=== PATIENT | male | born 1945 | race Caucasian/White ===

== ENCOUNTER 2016-08-15 13:48 | Inpatient (IN) | payer MEDICARE, MEDICAID ==
[2016-08-15 14:32] LABS: AUTOMATED BASOPHIL 0.6 % (0-2); AUTOMATED EOSINOPHIL 0.4 % (0-5); AUTOMATED LYMPH 18.6 % (17-44); AUTOMATED MONOCYTE 7.4 % (3-10); MPV 7.6 fL (7.4-10.4)
--- NOTE | 2016-08-15 14:36 | DIRPT ---
CLINICAL DATA: Headache, nausea, generalized weakness, blurred vision EXAM: PORTABLE CHEST 1 VIEW COMPARISON: 01/14/2015 FINDINGS: Cardiomediastinal silhouette is stable. Dual lead cardiac pacemaker is unchanged in position. Old left lower rib fractures are again noted no acute infiltrate or pulmonary edema. Mild left basilar atelectasis or scarring. IMPRESSION: No infiltrate or pulmonary edema. Old left lower rib fractures. Dual lead cardiac pacemaker is unchanged in position. Electronically Signed By: Rigo Miranda M.D. On: 08/15/2016 14:33
[2016-08-15 14:45] LABS: PARTIAL THROMB. TIME 26.1 SEC (22-35); PT-INR 1.1
[2016-08-15 14:47] LABS: BLOOD UREA NITROGEN 18 MG/DL (9-20); CALCIUM 9.5 MG/DL (8.4-10.2); CALCULATED OSMOLALITY 275 MOs/Kg (270-290); CHLORIDE 101 mEq/L (98-107); GLUCOSE 172 MG/DL (70-99); SODIUM LEVEL 140 mEq/L (137-146); TOTAL PROTEIN 7.6 G/DL (6.3-8.2)
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
--- NOTE | 2016-08-15 15:58 | DIRPT ---
CLINICAL DATA: Right-sided weakness. Headaches since last night. EXAM: CT HEAD WITHOUT CONTRAST TECHNIQUE: Contiguous axial images were obtained from the base of the skull through the vertex without intravenous contrast. COMPARISON: 01/17/2016 FINDINGS: Small lacunar infarct is identified within the right caudate nucleus. There is no intra or extra-axial fluid collection or mass lesion. The basilar cisterns and ventricles have a normal appearance. There is no CT evidence for acute infarction or hemorrhage. Bone windows are unremarkable. IMPRESSION: 1. 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 2. No evidence for acute intracranial abnormality. Electronically Signed By: Maya Coronado M.D. On: 08/15/2016 15:55
[2016-08-15 16:18] LABS: LEUKOCYTES/URINE NEG (NEGATIVE); NITRITE/URINE NEG (NEGATIVE); RBC/URINE 0-2 (0-2); URINE OCCULT BLOOD NEG (NEG/TRACE); WBC/URINE 0-2 (0-2)
[2016-08-15] MEDS ORDERED: OXYCODONE HCL 5 MG TABLET PO ONE (16:49)
[2016-08-15] MEDS: ASPIRIN 300 MG SUPP PR ONE ×2 (17:33→17:35)
[2016-08-15] MEDS ORDERED: ACETAMINOPHEN 325 MG/TAB TABLET PO PRN (18:12)
[2016-08-15] MEDS ORDERED: ONDANSETRON HCL 4 MG/2 ML VIAL IV PRN (18:12)
[2016-08-15] MEDS ORDERED: ALBUTEROL 0.083% 3 ML NEB NEB PRN (18:13)
[2016-08-15] MEDS ORDERED: DEXTROSE 25 GM/50 ML PFS IV PRN (18:13)
[2016-08-15] MEDS ORDERED: GLUCOSE (ORAL GEL) 15 GM TUBE PO PRN (18:13)
[2016-08-15] MEDS ORDERED: GLUCAGON 1 MG VIAL SQ PRN (18:13)
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
[2016-08-15] MEDS ORDERED: GLARGINE INSULIN (LANTUS) 100 UNITS/ML PEN SQ SCH (19:00)
[2016-08-15] MEDS ORDERED: BUDESONIDE 0.5 MG NEB NEB SCH (20:00)
[2016-08-15] MEDS: ALBUTEROL 0.083% 3 ML NEB NEB SCH (20:34)
[2016-08-15] MEDS: BUDESONIDE 0.5 MG NEB NEB SCH (20:36)
[2016-08-15] MEDS: REGULAR INSULIN 100 UNITS/ML - 3 ML VIAL SQ SCH (20:51)
[2016-08-15] MEDS: GLARGINE INSULIN (LANTUS) 100 UNITS/ML PEN SQ SCH (21:07)
[2016-08-15] MEDS: HYDROCODONE 5 MG/ACETAMIN 325 MG TAB PO PRN (21:13)
[2016-08-16] MEDS: OXYCODONE HCL 5 MG TABLET PO PRN ×2 (00:12→09:08)
[2016-08-16] MEDS: ALBUTEROL 0.083% 3 ML NEB NEB SCH ×4 (01:57→20:03)
[2016-08-16] MEDS: HYDROCODONE 5 MG/ACETAMIN 325 MG TAB PO PRN (06:06)
[2016-08-16] MEDS: GLARGINE INSULIN (LANTUS) 100 UNITS/ML PEN SQ SCH ×2 (06:08→21:18)
[2016-08-16] MEDS: REGULAR INSULIN 100 UNITS/ML - 3 ML VIAL SQ SCH ×4 (06:10→21:18)
[2016-08-16 06:15] LABS: MPV 7.8 fL (7.4-10.4)
[2016-08-16 06:28] LABS: BLOOD UREA NITROGEN 20 MG/DL (9-20); CALCIUM 8.9 MG/DL (8.4-10.2); CALCULATED OSMOLALITY 273 MOs/Kg (270-290); CHLORIDE 98 mEq/L (98-107); GLUCOSE 134 MG/DL (70-99); SODIUM LEVEL 139 mEq/L (137-146)
[2016-08-16] MEDS: BUDESONIDE 0.5 MG NEB NEB SCH ×2 (08:23→20:04)
[2016-08-16] MEDS ORDERED: ACETAMINOPHEN 325 MG SUPP PR ONE (09:56)
[2016-08-16] MEDS ORDERED: Pharmacy Review for Metformin - IV Contrast Given SCH ×2 (10:00→20:00)
[2016-08-16] MEDS ORDERED: ASPIRIN 300 MG SUPP PR ONE (10:15)
[2016-08-16] MEDS ORDERED: MORPHINE 2 MG/ML INJECTION ONE (10:28)
--- NOTE | 2016-08-16 11:06 | DIRPT ---
CLINICAL DATA: Right-sided weakness. Headache 2 days. EXAM: CT HEAD WITHOUT AND WITH CONTRAST TECHNIQUE: Contiguous axial images were obtained from the base of the skull through the vertex without and with intravenous contrast CONTRAST: 60 mL Isovue 370 IV COMPARISON: CT head 08/15/2016 FINDINGS: Ventricle size normal. Cerebral volume normal. Chronic lacunar infarction in the head of the caudate on the right unchanged. Negative for acute infarct Negative for acute hemorrhage or mass. No edema. Postcontrast imaging reveals normal enhancement. No enhancing mass. Normal vascular enhancement. Negative calvarium. IMPRESSION: Chronic lacunar infarction head of caudate on the right. No acute abnormality and no change from yesterday. Electronically Signed By: John Shields M.D. On: 08/16/2016 11:03
[2016-08-16] MEDS ORDERED: MORPHINE 2 MG/ML INJECTION IV ONE ×2 (11:15→23:59)
[2016-08-16] MEDS ORDERED: OXYCODONE HCL 5 MG TABLET PO PRN (11:58)
--- NOTE | 2016-08-16 12:04 | GENMEDPROG ---
Subjective Note: Patient in bed responsive follows commands, alert awake oriented interactive. Early on this morning patient developed a right-sided weakness, headache and inability to look to the right. He receive full-dose of aspirin. Stat head CT was repeated which showed chronic lacunar infarction in the head of caudate on the right, but no acute abnormality and no change from yesterday. On detailed questioning patient reports that his generalized weakness has worsened over the past 7-10 days, according to his he has been having problems with gait and balance as well. He also reports episodes of feeling clumsy on the right.. Notes Reviewed: Yes Events from last night noted and discussed with Clinical Staff Current Medication List: Reviewed Currently: Reports: Cough, Wheezing, SOB, Sputum, Tobacco Use/Hx, Reflux Sx DVT Prophylaxis: Yes - Physical Examination Vital Signs and I&O: Last Vital Signs Temp 97.8 F 08/16/16 11:00 Pulse 85 08/16/16 11:00 Resp 18 08/16/16 11:00 BP 146/69 08/16/16 11:00 Pulse Ox 96 08/16/16 11:00 Oxygen Pulse Oxygen Saturation 96 O2 Device Nasal Cannula Oxygen Flow Rate 2 Fraction of Inspired Oxygen ( FIO2) Intake & Output 08/13/16 08/14/16 08/15/16 08/16/16 23:59 23:59 23:59 23:59 Output Total 450 Balance -450 Patient's weight 80.422 kg General: Alert, Oriented x3, No acute distress, Well appearing, Well nourished HEENT: Normal, Anicteric Sclera. negative: EOMI Neck: Non-tender, Normal inspection, Limited range of motion Lymphatics: Normal Respiratory: Normal - CTA (Clear to auscultation bilaterally, no wheezing,rales or rhonchi. No use of accessory muscles), Diminished, Rhonchi Cardiovascular: Regular rate, Normal S1, Normal S2, Murmurs GI: Normal bowel sounds, Soft, Non tender, No hepatospenomegaly, No masses Extremities/Musculoskeletal: Edema, Cyanosis, DJD Skin: Warm,Dry and Intact, No rashes, No breakdown, No significant lesion Neurological: Normal speech, Dysmetria Psych/Mental Status: Anxious Allergies aspirin Allergy (Mild, Verified 08/15/16 16:07) Rash-Generalized codeine Allergy (Mild, Verified 08/15/16 16:07) Rash-Generalized penicillin G Allergy (Mild, Verified 08/15/16 16:07) Rash-Generalized metformin Allergy (Verified 08/15/16 16:07) Nausea/Vomiting peach Allergy (Verified 08/15/16 16:07) Nausea/Vomiting Last Vital Signs Temp 97.8 F 08/16/16 11:00 Pulse 85 08/16/16 11:00 Resp 18 08/16/16 11:00 BP 146/69 08/16/16 11:00 Pulse Ox 96 08/16/16 11:00 08/16/16 05:30 08/16/16 05:30 Abnormal Lab Results 08/15/16 08/15/16 08/15/16 14:20 14:20 14:20 WBC 15.7 H RBC 6.12 H Absolute Neuts (auto) 11.46 H Anion Gap 18 H Glucose 172 H POC Capillary Glucose Hemoglobin A1c 12.7 H Urine Protein 08/15/16 08/15/16 08/16/16 16:04 20:17 05:30 WBC RBC Absolute Neuts (auto) Anion Gap 17 H Glucose 134 H POC Capillary Glucose 140 H Hemoglobin A1c Urine Protein 1+ H 08/16/16 08/16/16 08/16/16 05:30 05:31 11:06 WBC 12.6 H RBC Absolute Neuts (auto) Anion Gap Glucose POC Capillary Glucose 142 H 182 H Hemoglobin A1c Urine Protein Lab/DI/Studies Reviewed: Patient Name: SHANTELLE CRANE SR LOC: [facility] : 1945 AGE: 71 Order Date:08/16/16 Date of Service:11/27 Report # [id number] Ord Physician: Nino Pace MD Exam # [id number] Emergency Physician: Yamil Guillaume DO Exam(s): [id number] CT/CT HEAD WO/W CM CLINICAL DATA: Right-sided weakness. Headache 2 days. EXAM: CT HEAD WITHOUT AND WITH CONTRAST TECHNIQUE: Contiguous axial images were obtained from the base of the skull through the vertex without and with intravenous contrast CONTRAST: 60 mL Isovue 370 IV COMPARISON: CT head 08/15/2016 FINDINGS: Ventricle size normal. Cerebral volume normal. Chronic lacunar infarction in the head of the caudate on the right unchanged. Negative for acute infarct Negative for acute hemorrhage or mass. No edema. Postcontrast imaging reveals normal enhancement. No enhancing mass. Normal vascular enhancement. Negative calvarium. IMPRESSION: Chronic lacunar infarction head of caudate on the right. No acute abnormality and no change from yesterday. Electronically Signed By: John Shields M.D. On: 08/16/2016 11:03 - Assessment (1) CVA (cerebral vascular accident) Acute I63.9 - CEREBRAL INFARCTION, UNSPECIFIED Qualifiers: CVA mechanism: other Qualified Code(s): I63.8 - Other cerebral infarction Comment/Plan: Stroke workup will be undertaken patient will undergo carotid Dopplers and 2D echo. Continue full-dose of aspirin 325 mg p.o. daily will also obtain neurological consultation. Given presence of pacemaker and joint hardware unable to obtain MRI. Monitor neuro symptoms (2) Acute exacerbation of chronic obstructive airways disease Acute J44.1 - CHRONIC OBSTRUCTIVE PULMONARY DISEASE W (ACUTE) EXACERBATION Comment/Plan: Continue O2 nebs and pulmonary toilet. Monitor pulmonary status.. (3) Diabetes mellitus type II, uncontrolled Chronic E11.65 - TYPE 2 DIABETES MELLITUS WITH HYPERGLYCEMIA Qualifiers: Diabetes mellitus complication status: with neurologic complications Comment/Plan: Continue ADA diet and sliding scale. Continue Lantus (4) Coronary artery disease involving black[place] coronary artery Chronic I25.10 - ATHSCL HEART DISEASE OF [place] CORONARY ARTERY W/O ANG PCTRS Qualifiers: [place] vs. transplanted heart: blackfeet heart Associated angina: without angina pectoris Qualified Code(s): I25.10 - Atherosclerotic heart disease of [place] coronary artery without angina pectoris Comment/Plan: Continue medical therapy. Echo pending (5) Tobacco abuse Acute Z72.0 - TOBACCO USE Comment/Plan: Smoking cessation counseling provided the patient. Case Care Discussed with: Patient, Consultants, Family, Nursing Staff, Manager Transfusion Education/Counseling Given To: Patient Education/Counseling Given Regarding: Diagnosis, Treatment, Prognosis, Follow Up Total Time: 55 min . Critical Care: No Code: 97290 (12+)
[2016-08-16 12:33] LABS: LDL (calc.) 115.4 MG/DL (<100); VLDL (calc.) 52.6 MG/DL (5-40)
[2016-08-16] MEDS ORDERED: Vaccine Screening Complete SCH (17:00)
--- NOTE | 2016-08-16 17:06 | DIRPT ---
CLINICAL DATA: CVA. Visual disturbance. History of diabetes and smoking. EXAM: BILATERAL CAROTID DUPLEX ULTRASOUND TECHNIQUE: Jang scale imaging, color Doppler and duplex ultrasound were performed of bilateral carotid and vertebral arteries in the neck. COMPARISON: Head CT - 08/16/2016 FINDINGS: Criteria: Quantification of carotid stenosis is based on velocity parameters that correlate the residual internal carotid diameter with NASCET-based stenosis levels, using the diameter of the distal internal carotid lumen as the denominator for stenosis measurement. The following velocity measurements were obtained: RIGHT ICA: 161/25 cm/sec CCA: 142/31 cm/sec SYSTOLIC ICA/CCA RATIO: 1.1 DIASTOLIC ICA/CCA RATIO: 0.8 ECA: 152 cm/sec LEFT ICA: 99/23 cm/sec CCA: 107/20 cm/sec SYSTOLIC ICA/CCA RATIO: 0.9 DIASTOLIC ICA/CCA RATIO: 1.2 ECA: 161 cm/sec RIGHT CAROTID ARTERY: There is a moderate amount of eccentric mixed echogenic plaque within the mid (images 3 and 15) and distal (images 4 and 16) aspects of the left common carotid artery. There is a moderate amount of extended mixed echogenic plaque within the right carotid bulb (image 22), extending to involve the origin and proximal aspects of the right internal carotid artery (image 65) which results in elevated peak systolic velocities within the proximal and mid aspects of the right internal carotid artery (greatest acquired peak systolic velocity with the proximal ICA measures 161 cm/sec - image 66). RIGHT VERTEBRAL ARTERY: Not visualized LEFT CAROTID ARTERY: There is a minimal amount of scattered eccentric mixed calcified partially shadowing plaque scattered throughout the left common carotid artery. There is a moderate amount of eccentric mixed echogenic plaque within the left carotid bulb (image 51), not resulting in elevated peak systolic velocities with the interrogated course of the left internal carotid artery to suggest a hemodynamically significant stenosis. LEFT VERTEBRAL ARTERY: Antegrade flow IMPRESSION: 1. Moderate amount of right-sided atherosclerotic plaque results in elevated peak systolic velocities within the right internal carotid artery compatible with the 50 to 69% luminal narrowing range. Further evaluation with CTA could be performed as clinically indicated. 2. Minimal to moderate amount of left-sided atherosclerotic plaque, not definitely resulting in hemodynamically significant stenosis. 3. Non visualization of a patent right vertebral artery. Electronically Signed By: Elias Joshi M.D. On: 08/16/2016 17:03
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
[2016-08-16] MEDS ORDERED: Fioricet Tablet PO PRN (21:07)
[2016-08-16] MEDS: OXYMETAZOLINE 0.05% NASAL SPRAY NAS SCH (21:17)
[2016-08-16] MEDS ORDERED: Fioricet Tablet PO ONE (21:30)
[2016-08-17] MEDS: ALBUTEROL 0.083% 3 ML NEB NEB SCH ×4 (02:33→19:30)
[2016-08-17 05:14] LABS: ALLEN'S TEST PASS; TCO2 29.9 MMOL/L (23-27)
[2016-08-17 05:17] LABS: ABG Draw Site Right Radial
[2016-08-17] MEDS: REGULAR INSULIN 100 UNITS/ML - 3 ML VIAL SQ SCH ×4 (05:29→20:45)
[2016-08-17 05:36] LABS: MPV 7.7 fL (7.4-10.4)
[2016-08-17 05:48] LABS: BLOOD UREA NITROGEN 18 MG/DL (9-20); CALCIUM 9.2 MG/DL (8.4-10.2); CALCULATED OSMOLALITY 271 MOs/Kg (270-290); CHLORIDE 100 mEq/L (98-107); GLUCOSE 144 MG/DL (70-99); SODIUM LEVEL 138 mEq/L (137-146)
[2016-08-17] MEDS ORDERED: Aspirin (Orange Enteric Coated) 325 mg tab PO SCH (08:00)
--- NOTE | 2016-08-17 08:33 | DIRPT ---
CLINICAL DATA: Reassess for stroke. EXAM: CT HEAD WITHOUT CONTRAST TECHNIQUE: Contiguous axial images were obtained from the base of the skull through the vertex without intravenous contrast. COMPARISON: CT head 08/16/2016. FINDINGS: There is central and cortical atrophy. Periventricular white matter changes are consistent with small vessel disease. There is no intra or extra-axial fluid collection or mass lesion. The basilar cisterns and ventricles have a normal appearance. There is no CT evidence for acute infarction or hemorrhage. Small lacunar infarct appear stable in the region of the right caudate nucleus and is stable. Bone windows are unremarkable. IMPRESSION: No evidence for acute abnormality. Chronic right caudate nucleus infarct. Electronically Signed By: Maya Coronado M.D. On: 08/17/2016 08:31
[2016-08-17] MEDS: BUDESONIDE 0.5 MG NEB NEB SCH ×2 (08:41→19:30)
[2016-08-17] MEDS: GLARGINE INSULIN (LANTUS) 100 UNITS/ML PEN SQ SCH ×2 (08:50→20:47)
[2016-08-17] MEDS: OXYMETAZOLINE 0.05% NASAL SPRAY NAS SCH ×2 (08:51→20:45)
[2016-08-17] MEDS: ATORVASTATIN 20 MG TAB PO SCH (08:52)
--- NOTE | 2016-08-17 09:12 | DIRPT ---
CLINICAL DATA: Carotid stenosis. Right-sided weakness and dizziness for 3 days. Abnormal carotid Doppler ultrasound. EXAM: CT ANGIOGRAPHY NECK TECHNIQUE: Multidetector CT imaging of the neck was performed using the standard protocol during bolus administration of intravenous contrast. Multiplanar CT image reconstructions and MIPs were obtained to evaluate the vascular anatomy. Carotid stenosis measurements (when applicable) are obtained utilizing NASCET criteria, using the distal internal carotid diameter as the denominator. CONTRAST: 100 mL Isovue 370 COMPARISON: Carotid Doppler ultrasound 08/16/2016 FINDINGS: Aortic arch: Extensive atherosclerotic plaque is present throughout the aortic arch. There is no significant stenosis. The origins of the the great vessels are patent. It common origin of the right left common carotid artery and innominate artery. Irregular plaque is present in the proximal left subclavian artery. The lumen is narrowed to 2 mm. This compares with a more distal lumen of 8 mm. Right carotid system: Oral atherosclerotic irregularity is present in the distal right common carotid artery. There are calcifications of the no at the right carotid bifurcation without a significant stenosis relative to the more distal vessel. The cervical right ICA is otherwise unremarkable. Left carotid system: A left common carotid artery demonstrates distal atherosclerotic plaque without a significant stenosis. Atherosclerotic changes are present at the carotid bifurcation without a significant stenosis. The cervical left ICA is within normal limits. Vertebral arteries:Both vertebral arteries originate from the subclavian arteries. There is mild narrowing of the proximal right vertebral artery with calcification at its origin. There is no focal stenosis at the origin of the left vertebral artery. However, there is extensive atherosclerotic disease in the left subclavian artery is mentioned above. The left vertebral artery is the dominant vessel. There are no focal stenoses within the neck. There is a moderate stenosis of the right vertebral artery just beyond the PICA. There is also a high-grade stenosis of the distal left vertebral artery proximal to the vertebrobasilar junction. Skeleton: ACDF is present at C3-4 as well as the C5-6 and C6-7. There is solid fusion across the disc spaces at these levels. Moderate osseous foraminal narrowing is present on the left at C3-4 and C6-7. There is severe osseous foraminal narrowing on the right at C6-7. Other neck: No focal mucosal or submucosal lesions are present. The salivary glands are within normal limits. There is no significant adenopathy. The thyroid is normal. Mild paraseptal emphysematous changes are present. IMPRESSION: 1. No significant carotid artery stenosis. 2. Atherosclerotic changes in the distal common carotid arteries and carotid bifurcations bilaterally. 3. 75% stenosis of the proximal left subclavian artery. 4. Moderate stenosis of the right vertebral artery just beyond the PICA and severe stenosis of the distal left vertebral artery proximal to the vertebrobasilar junction. This could lead to vertebrobasilar insufficiency. 5. Anterior cervical fusion at C3-4, C5-6, and C6-7. 6. Osseous foraminal narrowing in the cervical spine as described. Electronically Signed By: Manoj Sabillon M.D. On: 08/17/2016 09:10
[2016-08-17] MEDS ORDERED: HYDROmorphone 1 MG INJECTION IV PRN (11:34)
[2016-08-17] MEDS: CLOPIDOGREL 75 MG TAB PO SCH ×2 (11:37→17:00)
--- NOTE | 2016-08-17 12:00 | CAPUECHO ---
INDICATION: CVA HEIGHT: 175.3 cm (5 ft 9.0 in) WEIGHT: 80.3 kg (177.0 lbs) BP: 146/69 BSA: 1.079891 m MEASUREMENTS 2D RVIDd: 3.0 cm IVSd: 1.0 cm LVIDd: 5.0 cm LVPWd: 1.0 cm LVIDs: 3.9 cm EF(Teich): 46.01 % LA Diam: 3.5 cm EF Biplane: 51.46 % LAESV MOD A4C: 33.9 ml DOPPLER MV E Eran: 0.62 m/s MV A Eran: 0.69 m/s MV PHT: 52.59 ms MVA By PHT: 4.18 cm LVOT Vmax: 0.78 m/s AV Vmax: 1.08 m/s TR Vmax: 2.50 m/s TR maxP mmHg RVSP: 34.93 mmHg FINDINGS ------- Procedure:2D images, m-mode, color and spectral Doppler were obtained and reviewed. ECG rhythm:Sinus rhythm. Study quality:This was a technically adequate study. Left Ventricle:The left ventricular size is normal. Left ventricular wall thickness is normal. M ild diffuse hypokinesis with borderline/mild depression of LVEF, between 45 - 50 %. The diastolic filling pattern indicates impaired relaxation. Right Ventricle:The right ventricle is normal in size and function. Pacer wire in place. Left Atrium:The left atrium is normal in size. Right Atrium:The right atrium is normal in size and function. Electronic pacemaker lead seen in th e right atrial cavity. Aortic Valve:The aortic valve is trileaflet with mild aortic valve sclerosis. Mitral Valve:Normal appearing mitral valve. Mild mitral regurgitation is present. Tricuspid Valve:The tricuspid valve appears structurally normal. Mild tricuspid regurgitation pres ent. The right ventricular systolic pressure, as measured by Doppler, is 35 mmhg. Pulmonic Valve:Pulmonic valve appears structurally normal. Trace/mild (physiologic) pulmonic regu rgitation. Aorta:The aortic root, ascending aorta and aortic arch appear normal. IVC:The inferior vena cava was not well visualized. Pericardium:The pericardium is normal. CONCLUSIONS 1. normal left ventricular size, mild diffuse hypokinesis, borderline/mild depression of LVEF 45-50 % 2. aortic sclerosis, no significant valve disease 3. normal right heart size/function, pacin g catheter, high normal pulm artery pressure 4. no intracardiac source for emboli identified. Electronically Signed By: John Martinez MD-- Electronically Signed On: 11:58:05
[2016-08-17] MEDS: HYDROmorphone 1 MG INJECTION IV PRN ×3 (16:10→23:03)
--- NOTE | 2016-08-17 19:00 | GENMEDPROG ---
Subjective Note: Patient in bed responsive follows commands. Still reports right-sided weakness and inability to look to the right. Patient continues to report fairly severe neck and occipital pains. Minimal progress with physical therapy. Results of CT angiogram discussed in details with patient and his . Notes Reviewed: Yes Events from last night noted and discussed with Clinical Staff Current Medication List: Reviewed Currently: Reports: Cough, Wheezing, SOB, Sputum, Tobacco Use/Hx, Reflux Sx DVT Prophylaxis: Yes - Physical Examination Vital Signs and I&O: Last Vital Signs Temp 98.5 F 08/17/16 16:38 Pulse 87 08/17/16 16:38 Resp 20 08/17/16 16:38 BP 143/64 08/17/16 16:38 Pulse Ox 93 08/17/16 16:38 Oxygen Pulse Oxygen Saturation 93 O2 Device Room Air Oxygen Flow Rate 2 Fraction of Inspired Oxygen ( FIO2) Intake & Output 08/14/16 08/15/16 08/16/16 08/17/16 23:59 23:59 23:59 23:59 Intake Total 240 1105 Output Total 475 1000 Balance -235 105 Patient's weight 79.52 kg General: Alert, Oriented x3, No acute distress, Well appearing, Well nourished HEENT: Normal, PERRLA, Anicteric Sclera. negative: EOMI Neck: Non-tender, Normal inspection, No Masses palpable, Limited range of motion , Tender midline Lymphatics: Normal Respiratory: Normal - CTA (Clear to auscultation bilaterally, no wheezing,rales or rhonchi. No use of accessory muscles), Diminished, Rhonchi Cardiovascular: Regular rate, Normal S1, Normal S2, Murmurs GI: Normal bowel sounds, Soft, Non tender, No hepatospenomegaly, No masses Extremities/Musculoskeletal: Edema, Cyanosis, DJD Skin: Warm,Dry and Intact, No rashes, No breakdown, No significant lesion Neurological: Normal speech, Dysmetria Psych/Mental Status: Anxious Lab/DI/Studies Reviewed: Allergies aspirin Allergy (Mild, Verified 08/15/16 16:07) Rash-Generalized codeine Allergy (Mild, Verified 08/15/16 16:07) Rash-Generalized penicillin G Allergy (Mild, Verified 08/15/16 16:07) Rash-Generalized metformin Allergy (Verified 08/15/16 16:07) Nausea/Vomiting peach Allergy (Verified 08/15/16 16:07) Nausea/Vomiting Last Vital Signs Temp 98.5 F 08/17/16 16:38 Pulse 87 08/17/16 16:38 Resp 20 08/17/16 16:38 BP 143/64 08/17/16 16:38 Pulse Ox 93 08/17/16 16:38 08/17/16 04:50 08/17/16 04:50 Abnormal Lab Results 08/16/16 08/17/16 08/17/16 20:29 04:47 04:50 pCO2 46.0 H HCO3 28.5 H Total CO2 29.9 H Base Excess 3.0 H Glucose 144 H POC Capillary Glucose 195 H 08/17/16 08/17/16 08/17/16 05:15 11:01 15:53 pCO2 HCO3 Total CO2 Base Excess Glucose POC Capillary Glucose 144 H 245 H 218 H - Assessment (1) CVA (cerebral vascular accident) Acute I63.9 - CEREBRAL INFARCTION, UNSPECIFIED Qualifiers: CVA mechanism: other Qualified Code(s): I63.8 - Other cerebral infarction Comment/Plan: Again CTA results discussed in details with patient his . Patient has been seen by Neurology therapy switched to Plavix. Monitor neuro status. (2) Acute exacerbation of chronic obstructive airways disease Acute J44.1 - CHRONIC OBSTRUCTIVE PULMONARY DISEASE W (ACUTE) EXACERBATION Comment/Plan: Continue O2 nebs and pulmonary toilet. Monitor pulmonary status.. (3) Diabetes mellitus type II, uncontrolled Chronic E11.65 - TYPE 2 DIABETES MELLITUS WITH HYPERGLYCEMIA Qualifiers: Diabetes mellitus complication status: with neurologic complications Comment/Plan: Continue ADA diet and sliding scale. Continue Lantus (4) Coronary artery disease involving [place] coronary artery Chronic I25.10 - ATHSCL HEART DISEASE OF [place] CORONARY ARTERY W/O ANG PCTRS Qualifiers: [place] vs. transplanted heart: [place] heart Associated angina: without angina pectoris Qualified Code(s): I25.10 - Atherosclerotic heart disease of [place] coronary artery without angina pectoris Comment/Plan: Continue medical therapy. Echo pending (5) Tobacco abuse Acute Z72.0 - TOBACCO USE Comment/Plan: Smoking cessation counseling provided the patient. (6) VBI (vertebrobasilar insufficiency) Acute G45.0 - VERTEBRO-BASILAR ARTERY SYNDROME Comment/Plan: Continue Plavix. Continue gait and balance training. Continue PTOT Case Care Discussed with: Patient, Consultants, Family, Nursing Staff, Occupational Therapy, Physical Therapy Education/Counseling Given To: Patient Education/Counseling Given Regarding: Diagnosis, Treatment, Prognosis, Follow Up Total Time: 55 min . Critical Care: No Code: 50709 (12+)
--- NOTE | 2016-08-17 19:15 | PCM.NEUPN ---
- Physical Exam Vital Signs: Initial Vitals Temperature 98.1 F 08/15/16 14:01 Pulse Rate 94 08/15/16 14:01 Respiratory Rate 20 08/15/16 14:01 Blood Pressure 141/83 08/15/16 14:01 Pulse Oxygen Saturation 95 08/15/16 14:01 Constitutional: No apparent distress, Alert - Mental Status Orientation: Time, Person, Place Speech: Fluent, Clear Coginitive: Normal Motor Function: Abnormal (right UE 4/5 weakness, right LE 3/5 weakness) Affect: Normal Thought: Coherent Perception: Normal Mental Status Addtional Findings: Dizzy upon standing. R VF defect. - Sensory Sensory: Normal - Diagnostic Findings CT ANGIOGRAPHY NECK TECHNIQUE: Multidetector CT imaging of the neck was performed using the standard protocol during bolus administration of intravenous contrast. Multiplanar CT image reconstructions and MIPs were obtained to evaluate the vascular anatomy. Carotid stenosis measurements (when applicable) are obtained utilizing NASCET criteria, using the distal internal carotid diameter as the denominator. CONTRAST: 100 mL Isovue 370 COMPARISON: Carotid Doppler ultrasound 08/16/2016 FINDINGS: Aortic arch: Extensive atherosclerotic plaque is present throughout the aortic arch. There is no significant stenosis. The origins of the the great vessels are patent. It common origin of the right left common carotid artery and innominate artery. Irregular plaque is present in the proximal left subclavian artery. The lumen is narrowed to 2 mm. This compares with a more distal lumen of 8 mm. Right carotid system: Oral atherosclerotic irregularity is present in the distal right common carotid artery. There are calcifications of the no at the right carotid bifurcation without a significant stenosis relative to the more distal vessel. The cervical right ICA is otherwise unremarkable. Left carotid system: A left common carotid artery demonstrates distal atherosclerotic plaque without a significant stenosis. Atherosclerotic changes are present at the carotid bifurcation without a significant stenosis. The cervical left ICA is within normal limits. Vertebral arteries:Both vertebral arteries originate from the subclavian arteries. There is mild narrowing of the proximal right vertebral artery with calcification at its origin. There is no focal stenosis at the origin of the left vertebral artery. However, there is extensive atherosclerotic disease in the left subclavian artery is mentioned above. The left vertebral artery is the dominant vessel. There are no focal stenoses within the neck. There is a moderate stenosis of the right vertebral artery just beyond the PICA. There is also a high-grade stenosis of the distal left vertebral artery proximal to the vertebrobasilar junction. Skeleton: ACDF is present at C3-4 as well as the C5-6 and C6-7. There is solid fusion across the disc spaces at these levels. Moderate osseous foraminal narrowing is present on the left at C3-4 and C6-7. There is severe osseous foraminal narrowing on the right at C6-7. Other neck: No focal mucosal or submucosal lesions are present. The salivary glands are within normal limits. There is no significant adenopathy. The thyroid is normal. Mild paraseptal emphysematous changes are present. IMPRESSION: 1. No significant carotid artery stenosis. 2. Atherosclerotic changes in the distal common carotid arteries and carotid bifurcations bilaterally. 3. 75% stenosis of the proximal left subclavian artery. 4. Moderate stenosis of the right vertebral artery just beyond the PICA and severe stenosis of the distal left vertebral artery proximal to the vertebrobasilar junction. This could lead to vertebrobasilar insufficiency. 5. Anterior cervical fusion at C3-4, C5-6, and C6-7. 6. Osseous foraminal narrowing in the cervical spine as described. - Assessment/Plan (1) CVA (cerebral vascular accident) I63.9 - CEREBRAL INFARCTION, UNSPECIFIED Acute Present on Admission: Yes stenosis basilar artery I63.22 - Cerebral infarction due to unspecified occlusion or stenosis of basilar arteries Comment: 71 yom with likely brainstem CVA extending into left thalamus per clinical presentation but unable to detect on CT. Pt cannot have MRI due to pacemaker/ defibrillator. He cannot take aspirin and has had problems with plavix in the past (nausea). So far he has tolerated the plavix. He said he ran out of his crestor. He still smokes 1/2 ppd down from 4 ppd starting smoking at age 9. He says he won't stop smoking. I encouraged him to try and tolerate the plavix and take his crestor regularly for stroke prevention. I strongly encouraged him to stop the smoking and discussed ways to do that. CTA shows multiple areas of significant stenosis throughout the neck and I strongly suspect he has the same in the intracranial vessels, making intervention proximally a futile effort. He would benefit from a course of rehab. Plan: 1. Plavix. 2. statin. 3. BP control. 4. stop smoking 5. rehab.
[2016-08-18] MEDS: ALBUTEROL 0.083% 3 ML NEB NEB SCH ×3 (02:05→13:41)
[2016-08-18] MEDS: HYDROmorphone 1 MG INJECTION IV PRN ×3 (02:06→08:28)
[2016-08-18 05:25] VITALS: BMI 26.2
[2016-08-18] MEDS: REGULAR INSULIN 100 UNITS/ML - 3 ML VIAL SQ SCH ×2 (06:08→11:59)
[2016-08-18] MEDS: GLARGINE INSULIN (LANTUS) 100 UNITS/ML PEN SQ SCH (06:09)
[2016-08-18 06:31] LABS: MPV 7.8 fL (7.4-10.4)
[2016-08-18 07:10] LABS: BLOOD UREA NITROGEN 17 MG/DL (9-20); CALCIUM 9.1 MG/DL (8.4-10.2); CALCULATED OSMOLALITY 274 MOs/Kg (270-290); CHLORIDE 101 mEq/L (98-107); GLUCOSE 125 MG/DL (70-99); SODIUM LEVEL 141 mEq/L (137-146)
[2016-08-18] MEDS: ATORVASTATIN 20 MG TAB PO SCH (08:28)
[2016-08-18] MEDS: OXYMETAZOLINE 0.05% NASAL SPRAY NAS SCH (08:28)
[2016-08-18] MEDS: CLOPIDOGREL 75 MG TAB PO SCH (08:29)
[2016-08-18] MEDS: BUDESONIDE 0.5 MG NEB NEB SCH (08:43)
[2016-08-18 14:06] VITALS: BP 138/80; PULSE 77; TEMP 98.5
--- NOTE | 2016-08-18 15:08 | PCM.DCS92 ---
- Final/Secondary Discharge Diagnosis (1) CVA (cerebral vascular accident) Acute I63.9 - CEREBRAL INFARCTION, UNSPECIFIED Present on Admission: Yes stenosis basilar artery I63.22 - Cerebral infarction due to unspecified occlusion or stenosis of basilar arteries Comment: Most likely brainstem infarct since repeated CT scan did not show any new lesion. Continue Plavix PTOT (2) VBI (vertebrobasilar insufficiency) Acute G45.0 - VERTEBRO-BASILAR ARTERY SYNDROME Present on Admission: Yes Comment: Continue Plavix. Continue gait and balance training. Continue PTOT (3) Acute exacerbation of chronic obstructive airways disease Acute J44.1 - CHRONIC OBSTRUCTIVE PULMONARY DISEASE W (ACUTE) EXACERBATION Comment: Continue O2 nebs and pulmonary toilet. Monitor pulmonary status.. (4) Diabetes mellitus type II, uncontrolled Chronic E11.65 - TYPE 2 DIABETES MELLITUS WITH HYPERGLYCEMIA Present on Admission: Yes with neurologic complications Comment: Continue ADA diet and sliding scale. Continue Lantus (5) Coronary artery disease involving [place] coronary artery Chronic I25.10 - ATHSCL HEART DISEASE OF [place] CORONARY ARTERY W/O ANG PCTRS Present on Admission: Yes [place] heart without angina pectoris I25.10 - Atherosclerotic heart disease of [place] coronary artery without angina pectoris Comment: Continue medical therapy. Echo pending (6) Tobacco abuse Acute Z72.0 - TOBACCO USE Comment: Smoking cessation counseling provided the patient. (7) DDD (degenerative disc disease), cervical Chronic M50.30 - OTHER CERVICAL DISC DEGENERATION, UNSP CERVICAL REGION Present on Admission: Yes Plan/Goal/Comment: Status post fusion, continue PTOT and narcotic analgesics pain Discharge Disposition: Shelter Facility Discharge Condition: Improved Cognitive Discharge Status: Unimpaired Fuctional Discharge Status: Walker Assistance, Fall Risk, Deconditioning Physician Follow up/Referrals: Linette Ang, PROGRAM DIRECTOR/TRAFFIC DIRECTOR [Primary Care Provider] - One Week New Prescriptions: Atorvastatin Calcium 40 mg PO HS #60 tablet Hydromorphone HCl [Dilaudid] 2 mg PO Q6 PRN #90 tablet PRN Reason: Pain Albuterol/Ipratropium Neb [Duoneb] 3 ml NEB Q6H #120 nebu PEG-Electrolytes (Miralax) [Miralax] 17 gm PO DAILY #1 each Calcium Carbonate + Vitamin D [Oscal with Vitamin D] 500 mg PO BID #120 tab Clopidogrel Bisulfate [Plavix] 75 mg PO DAILY #90 tab O2 Device: Room Air Diet at Discharge: Heart Healthy, Low Salt, Diabetic, 2200 Calorie, High Fiber Activity: As Tolerated, Limited, No Heavy Lifting Call Office For: Fever over 101 F Discontinue use of:: Alcohol, All Illegal Substances, All Types of Tobacco - DC Summary Notes Hospital Course Note:: Discharge summary on patient named SHANTELLE CRANE SR admitted to [facility] on 08/16/16 by Reynaldo Pruitt MD. Date of discharge is []. Patient is initially present emergency room on August 15 for evaluation of progressive worsening weakness and fatigue, a right-sided weakness neck pain and headache and episodes of feeling dizzy and lightheaded. Please refer to the admission for further details. ED workup was undertaken initial head CT show old right lacunar infarct but no evidence of acute intracranial abnormality. Once in-hospital worsening right-sided weakness was noted also right gaze paralysis. Repeated head CT was obtained which showed no change from previous one. Given clinical presentation strong suspicion for acute CVA was raised and patient was seen consultation by Neurology. He was switched from aspirin to Plavix. CT angiogram of the head and neck was obtained which showed no significant carotid artery stenosis on either side, atherosclerotic changes and distal common carotid arteries and carotid bifurcations, 75% stenosis of left subclavian artery also moderate stenosis of right vertebral artery, cervical fusion C3 through C7 and osseus foraminal narrowing of cervical spine. Neurology impression was that patient has sustained brainstem stroke resulting in right gaze paralisis. Outpatient regimen for his chronic medical conditions was continued, his blood sugar remained under good control with no episodes of hypoglycemia. Smoking cessation was provided during hospital stay and patient received nebulized bronchodilators. He was seen evaluated by PT OT and had significant problems with transfers gait balance and right-sided weakness. Patient also required narcotic analgesics to control persistent neck pain related to severe DDD. Patient was kept abreast on clinical progression on regular daily basis. Given significant physical debility related to new and prior stroke ,severe DDD of the cervical spine,VBI skilled therapy was recommended. On general in clinically improved condition patient has been transferred to [facility] for PT OT. Total Time: 45 min. Code: 74793 (>30min.) - Physical Exam Vital Signs: Last Vital Signs Temp 98.5 F 08/18/16 14:00 Pulse 77 01/06/17 14:00 Resp 20 08/18/16 14:00 BP 138/80 08/18/16 14:00 Pulse Ox 97 08/18/16 14:00 Oxygen Pulse Oxygen Saturation 97 O2 Device Room Air Oxygen Flow Rate 2 Fraction of Inspired Oxygen ( FIO2) Constitutional: No apparent distress, Alert Oriented to: Time, Person, Place, Not Oriented - HEENT Head: Normal Eye: Normal Oropharynx: Normal ENT EAC: Normal TMJ: Normal Nose: No Symptoms Reported - Respiratory/Cardiovascular Respiratory: Normal - CTA (Clear to auscultation bilaterally, no wheezing,rales or rhonchi. No use of accessory muscles), Diminished, Rhonchi Cardiovascular: Normal, Systolic murmur - GI Auscultation: Normal Palpation: Normal (soft, non distended and nontender) Tenderness: Non tender Rectal Exam: Deferred - Exam Deferred: Yes - Musculoskeletal Back: Other (naeck tend) Extremities: Normal (normal tone, no cyanosis or edema), Cyanosis - Integumentary Skin: Normal, Warm, Dry Lymphatics: Normal - Neurologic Memory Impaired: Normal Motor Function: Abnormal Cranial Nerve: Normal. negative: 3 Cerebellar: Ataxia Mood Description: Normal, Anxious Thought: Coherent Perception: Normal - Other Exam Other Exam Findings: Last Vital Signs Temp 98.5 F 08/18/16 14:00 Pulse 77 08/18/16 14:00 Resp 20 08/18/16 14:00 BP 138/80 08/18/16 14:00 Pulse Ox 97 08/18/16 14:00 Active Problems COPD (chronic obstructive pulmonary disease) (Acute) J44.9 Continue present care, no evidence of acute exacerbation. CVA (cerebral vascular accident) (Acute) I63.9 Again CTA results discussed in details with patient his . Patient has been seen by Neurology therapy switched to Plavix. Monitor neuro status. Headache (Acute) R51 Malaise and fatigue (Acute) R53.81, R53.83 Etiology is unclear. Patient will be admitted to the hospital under observation status. No focal neurologic deficit, confusion, slurred speech etc. I highly doubt acute CVA. Interestingly, the patient does have prior infarction seen on CT at the time of admission. Though he denies history of stroke. Physical therapy has been consulted. VBI (vertebrobasilar insufficiency) (Acute) G45.0 Continue Plavix. Continue gait and balance training. Continue PTOT 08/18/16 05:15 08/18/16 05:15 Abnormal Lab Results 08/17/16 08/17/16 08/18/16 15:53 20:03 05:08 WBC Glucose POC Capillary Glucose 218 H 175 H 126 H 08/18/16 08/18/16 08/18/16 05:15 05:15 11:07 WBC 11.3 H Glucose 125 H POC Capillary Glucose 146 H Allergies aspirin Allergy (Mild, Verified 08/15/16 16:07) Rash-Generalized codeine Allergy (Mild, Verified 08/15/16 16:07) Rash-Generalized penicillin G Allergy (Mild, Verified 08/15/16 16:07) Rash-Generalized metformin Allergy (Verified 08/15/16 16:07) Nausea/Vomiting peach Allergy (Verified 08/15/16 16:07) Nausea/Vomiting Discharge Home Medication List Budesonide/Formoterol Fumarate [Symbicort 160-4.5 Mcg Inhaler] 2 puff INH BID [History Confirmed 08/15/16] Insulin Glargine [Lantus Pen] 20 units SQ BID 01/17/16 [History Confirmed ] Albuterol/Ipratropium Neb [Duoneb] 3 ml NEB Q6H #120 nebu 08/18/16 [Rx] Atorvastatin Calcium 40 mg PO HS #60 tablet 08/18/16 [Rx] Calcium Carbonate + Vitamin D [Oscal with Vitamin D] 500 mg PO BID #120 tab 01/27 [Rx] Clopidogrel Bisulfate [Plavix] 75 mg PO DAILY #90 tab 08/18/16 [Rx] Hydromorphone HCl [Dilaudid] 2 mg PO Q6 PRN #90 tablet 08/18/16 [Rx] PEG-Electrolytes (Miralax) [Miralax] 17 gm PO DAILY #1 each 08/18/16 [Rx] New Discharge Medications (Rx) Albuterol/Ipratropium Neb [Duoneb] 3 ml NEB Q6H #120 nebu 08/18/16 [Rx] Atorvastatin Calcium 40 mg PO HS #60 tablet 08/18/16 [Rx] Calcium Carbonate + Vitamin D [Oscal with Vitamin D] 500 mg PO BID #120 tab 01/ 06/17 [Rx] Clopidogrel Bisulfate [Plavix] 75 mg PO DAILY #90 tab 08/18/16 [Rx] Hydromorphone HCl [Dilaudid] 2 mg PO Q6 PRN #90 tablet 08/18/16 [Rx] PEG-Electrolytes (Miralax) [Miralax] 17 gm PO DAILY #1 each 08/18/16 [Rx] Initial Vitals Temperature 98.1 F 08/15/16 14:01 Pulse Rate 94 08/15/16 14:01 Respiratory Rate 20 08/15/16 14:01 Blood Pressure 141/83 08/15/16 14:01 Pulse Oxygen Saturation 95 08/15/16 14:01 Patient Name: SHANTELLE CRANE SR LOC: [facility] : 1945 AGE: 71 Order Date:08/16/16 Date of Service:12/27 Report # [id number] Ord Physician: Jessie Hernandez Exam # [id number] Emergency Physician: Yamil Guillaume DO Exam(s): [id number] CT/CT ANGIO NECK CLINICAL DATA: Carotid stenosis. Right-sided weakness and dizziness for 3 days. Abnormal carotid Doppler ultrasound. EXAM: CT ANGIOGRAPHY NECK TECHNIQUE: Multidetector CT imaging of the neck was performed using the standard protocol during bolus administration of intravenous contrast. Multiplanar CT image reconstructions and MIPs were obtained to evaluate the vascular anatomy. Carotid stenosis measurements (when applicable) are obtained utilizing NASCET criteria, using the distal internal carotid diameter as the denominator. CONTRAST: 100 mL Isovue 370 COMPARISON: Carotid Doppler ultrasound 08/16/2016 FINDINGS: Aortic arch: Extensive atherosclerotic plaque is present throughout the aortic arch. There is no significant stenosis. The origins of the the great vessels are patent. It common origin of the right left common carotid artery and innominate artery. Irregular plaque is present in the proximal left subclavian artery. The lumen is narrowed to 2 mm. This compares with a more distal lumen of 8 mm. Right carotid system: Oral atherosclerotic irregularity is present in the distal right common carotid artery. There are calcifications of the no at the right carotid bifurcation without a significant stenosis relative to the more distal vessel. The cervical right ICA is otherwise unremarkable. Left carotid system: A left common carotid artery demonstrates distal atherosclerotic plaque without a significant stenosis. Atherosclerotic changes are present at the carotid bifurcation without a significant stenosis. The cervical left ICA is within normal limits. Vertebral arteries:Both vertebral arteries originate from the subclavian arteries. There is mild narrowing of the proximal right vertebral artery with calcification at its origin. There is no focal stenosis at the origin of the left vertebral artery. However, there is extensive atherosclerotic disease in the left subclavian artery is mentioned above. The left vertebral artery is the dominant vessel. There are no focal stenoses within the neck. There is a moderate stenosis of the right vertebral artery just beyond the PICA. There is also a high-grade stenosis of the distal left vertebral artery proximal to the vertebrobasilar junction. Skeleton: ACDF is present at C3-4 as well as the C5-6 and C6-7. There is solid fusion across the disc spaces at these levels. Moderate osseous foraminal narrowing is present on the left at C3-4 and C6-7. There is severe osseous foraminal narrowing on the right at C6-7. Other neck: No focal mucosal or submucosal lesions are present. The salivary glands are within normal limits. There is no significant adenopathy. The thyroid is normal. Mild paraseptal emphysematous changes are present. IMPRESSION: 1. No significant carotid artery stenosis. 2. Atherosclerotic changes in the distal common carotid arteries and carotid bifurcations bilaterally. 3. 75% stenosis of the proximal left subclavian artery. 4. Moderate stenosis of the right vertebral artery just beyond the PICA and severe stenosis of the distal left vertebral artery proximal to the vertebrobasilar junction. This could lead to vertebrobasilar insufficiency. 5. Anterior cervical fusion at C3-4, C5-6, and C6-7. 6. Osseous foraminal narrowing in the cervical spine as described. Electronically Signed By: Manoj Sabillon M.D. On: 08/17/2016 09:10 Electronically Signed By: Manoj Sabillon MD Electronically
== END 2016-08-18 17:47 | DRG 65 ==
LOC: ED 13:48 → MPS3 18:49 → OBSVTOIN 08-16 12:00
PROVIDERS: ADMIT Internal Medicine; ATTEND Internal Medicine
PROC: 039B3ZZ Drainage of Right Radial Artery, Percutaneous Approach (ICD-10-PCS; principal; 2016-08-16)
DX: I63.22 Cerebral infarction due to unspecified occlusion or stenosis of basilar artery (principal); J44.1 Chronic obstructive pulmonary disease with (acute) exacerbation; E11.65 Type 2 diabetes mellitus with hyperglycemia; G81.91 Hemiplegia, unspecified affecting right dominant side; H53.8 Other visual disturbances; I25.10 Atherosclerotic heart disease of native coronary artery without angina pectoris; F17.210 Nicotine dependence, cigarettes, uncomplicated; M50.30 Other cervical disc degeneration, unspecified cervical region; H51.0 Palsy (spasm) of conjugate gaze; Z95.0 Presence of cardiac pacemaker; I25.2 Old myocardial infarction; E78.00 Pure hypercholesterolemia, unspecified; M19.90 Unspecified osteoarthritis, unspecified site; Z88.0 Allergy status to penicillin; Z88.5 Allergy status to narcotic agent; Z88.8 Allergy status to other drugs, medicaments and biological substances; Z79.4 Long term (current) use of insulin; R29.704 NIHSS score 4
CPT/HCPCS: 36415; 36600; 51798; 70450; 70470; 70498; 71010; 80048; 80053; 80061; 81001; 82043; 82803; 82962; 83036; 84484; 85025; 85027; 85610; 85730; 93005; 93306; 93880; 94640; 96372; 97162; 97166; 99285; 99406; A9698; G0237; G0378; J1170; J2270; J3490